=== PATIENT | female | born 1975 | race African-American/Black ===

== ENCOUNTER 2017-12-24 09:35 | Emergency (ER) | payer MEDICAID ==
[~2017-12-24] VITALS: Ht 162.6 cm; Wt 105.0 kg
[~2017-12-24 09:35] MED LIST: AMLO10TA80 PO; ENOX100D4; HTN MEDICATION; HYDR25TA PO; METF500T4 PO; OMEP40CA34 PO; POTA10TA15 PO; WARF5TAB76
[2017-12-24] MEDS ORDERED: HYDROCODONE/ACETAMINOPHEN 5/325MG TABLET PO ONE (11:15)
[2017-12-24 11:23] VITALS: BP 160/99
== END 2017-12-24 11:33 | disposition home or self-care (01) ==
LOC: ER 09:47
DX: M54.5 Low back pain (principal); G89.29 Other chronic pain; I10 Essential (primary) hypertension; F17.200 Nicotine dependence, unspecified, uncomplicated; E11.9 Type 2 diabetes mellitus without complications; Z79.01 Long term (current) use of anticoagulants; Z88.0 Allergy status to penicillin; Z88.6 Allergy status to analgesic agent; Z90.710 Acquired absence of both cervix and uterus
CPT/HCPCS: 99283

== ENCOUNTER 2017-12-28 18:23 | Emergency (ER) | payer MEDICAID ==
[~2017-12-28] VITALS: Ht 162.6 cm; Wt 112.0 kg
[2017-12-28] MEDS: ACETAMINOPHEN 500MG TABLET PO ONE ×2 (21:45→22:11)
[2017-12-28 22:06] LABS: BASOPHILS % 1.1 % (0.0-2.0); EOSINOPHILS % 3.6 % (0.0-5.0); HEMOGLOBIN. 12.6 g/dL (12.0-16.0); LYMPHOCYTES % 36.4 % (20.0-50.0); MEAN CORPUSCULAR HEMOGLOBIN 29.6 pg (28.0-32.0); MEAN CORPUSCULAR VOLUME 89.4 fL (81.0-99.0); MEAN PLATELET VOLUME 8.6 fl (7.4-10.4); NEUTROPHILS % 52.9 % (40.0-76.0); PLATELET 356 x1000/uL (130-400); RED BLOOD CELL COUNT 4.25 mill/uL (4.2-5.4); RED CELL DISTRIBUTION WIDTH 15.1 % (11.6-14.6)
[2017-12-28 22:12] LABS: PARTIAL THROMBOPLASTIN TIME 27.1 sec (23.4-31.0); PROTHROMBIN TIME 10.7 sec (9.4-11.6)
[2017-12-28 22:15] LABS: CHLORIDE 107 mEq/L (98-107)
[2017-12-28 23:45] VITALS: BP 112/76
[2017-12-29 01:02] LABS: KETONES URINE 2+ (NEGATIVE); LEUKOCYTE ESTERASE URINE 2+ (NEGATIVE); NITRITE URINE POSITIVE (NEGATIVE); OCCULT BLOOD URINE 3+ (NEGATIVE); PH URINE 8.5 (4.5-8.0); PROTEIN URINE TRACE (NEGATIVE); SPECIFIC GRAVITY URINE 1.002 (1.005-1.030)
[2017-12-29 01:03] LABS: CLARITY URINE SL HAZY (CLEAR); COLOR URINE YELLOW (YELLOW)
== END 2017-12-29 00:15 | disposition left against medical advice (07) ==
LOC: ER 20:20
DX: M79.605 Pain in left leg (principal); I10 Essential (primary) hypertension; E11.9 Type 2 diabetes mellitus without complications; Z86.718 Personal history of other venous thrombosis and embolism; Z88.0 Allergy status to penicillin; Z88.6 Allergy status to analgesic agent; Z79.01 Long term (current) use of anticoagulants
CPT/HCPCS: 36415; 80053; 81001; 81025; 83690; 85025; 85610; 85730; 93971; 99285

== ENCOUNTER 2024-10-04 07:07 | Emergency (ER) | payer MEDICAID ==
[~2024-10-04] VITALS: Ht 162.6 cm; Wt 119.2 kg
[~2024-10-04 07:07] MED LIST changes: +METF-414 PO; -METF500T4 PO; +OMEP40CA20 PO; -OMEP40CA34 PO
[2024-10-04 07:12] VITALS: O2SAT 100
[2024-10-04] MEDS: ONDANSETRON HCL 4MG TABLET PO ONE (08:35)
[2024-10-04] MEDS: ACETAMINOPHEN 325MG TABLET PO STA (08:35)
[2024-10-04 08:38] LABS: CLARITY URINE CLOUDY (CLEAR); COLOR URINE YELLOW (YELLOW); GLUCOSE URINE TRACE (NEGATIVE); KETONES URINE NEGATIVE (NEGATIVE); LEUKOCYTE ESTERASE URINE 3+ (NEGATIVE); NITRITE URINE NEGATIVE (NEGATIVE); OCCULT BLOOD URINE NEGATIVE (NEGATIVE); PH URINE 5.5 (4.5-8.0); PROTEIN URINE NEGATIVE (NEGATIVE); SPECIFIC GRAVITY URINE 1.018 (1.005-1.030); UROBILINOGEN URINE 0.2 E.U./dL (0.2-1.0)
[2024-10-04 09:07] LABS: WBC URINE 50-100 /hpf (0-2)
[2024-10-04 09:08] LABS: BACTERIA URINE 2+; SQUAMOUS EPITHELIAL CELL URINE 2+ /lpf (RARE/1+); TRICHOMONAS URINE 1+
[2024-10-04 09:10] LABS: HYALINE CASTS URINE 0-5 /lpf
[2024-10-04] MEDS ORDERED: NITR100C PO (09:40)
[2024-10-04] MEDS ORDERED: DOXY100C5 PO (09:40)
[2024-10-04] MEDS: DOXYCYCLINE HYCLATE 100MG CAPSULE PO ONE (10:21)
[2024-10-04] MEDS: CEFTRIAXONE SODIUM 1G VIAL IM ONE (10:22)
[2024-10-04] MEDS ORDERED: ONDA-239 PO (10:55)
[2024-10-04] MEDS ORDERED: TOPUD PO (10:55)
[2024-10-04 11:01] VITALS: BP 155/87; PULSE 78; RESP 16; TEMP 36.78072; O2SAT 100
[2024-10-06 04:08] LABS: CHLAMYDIA TRACHOMATIS NAA Negative (Negative); NEISSERIA GONORRHOEAE NAA Negative (Negative)
== END 2024-10-04 11:17 | disposition home or self-care (01) ==
LOC: ER 07:07
DX: N39.0 Urinary tract infection, site not specified (principal); A74.9 Chlamydial infection, unspecified; I10 Essential (primary) hypertension; E11.9 Type 2 diabetes mellitus without complications; Z88.6 Allergy status to analgesic agent; Z88.0 Allergy status to penicillin; Z90.710 Acquired absence of both cervix and uterus; Z79.899 Other long term (current) drug therapy; Z98.890 Other specified postprocedural states
CPT/HCPCS: 87491; 87591; 81003; 81025; 87086; 96372; 99284; Q0162; J0696; Z7610 ×2

== ENCOUNTER 2025-04-11 06:33 | Emergency (ER) | payer MEDICAID ==
[~2025-04-11] VITALS: Ht 162.6 cm; Wt 113.0 kg
[~2025-04-11 06:33] MED LIST changes: +DOXY100C5 PO; +NITR100C PO; +ONDA-239 PO; +TOPUD PO
[2025-04-11 06:40] VITALS: TEMP 36.9; O2SAT 100
[2025-04-11 06:42] VITALS: O2SAT 100
[2025-04-11 07:26] LABS: BASOPHILS % 0.8 % (0.0-2.0); HEMATOCRIT. 39.8 % (36.0-48.0); HEMOGLOBIN. 13.2 g/dL (12.0-16.0); LYMPHOCYTES % 33.9 % (20.0-50.0); MEAN CORPUSCULAR HGB CONC 33.1 g/dL (31.0-37.0); MEAN CORPUSCULAR VOLUME 90.5 fL (81.0-99.0); MEAN PLATELET VOLUME 8.6 fl (7.4-10.4); MONOCYTES % 6.1 % (2.0-8.0); NEUTROPHILS % 56.2 % (40.0-76.0); PLATELET 378 x1000/uL (130-400); RED CELL DISTRIBUTION WIDTH 14.6 % (11.6-14.6); WHITE BLOOD COUNT 9.6 x1000/uL (4.5-11.0)
[2025-04-11 07:56] LABS: CLARITY URINE CLEAR (CLEAR); COLOR URINE YELLOW (YELLOW); GLUCOSE URINE NEGATIVE (NEGATIVE); KETONES URINE NEGATIVE (NEGATIVE); LEUKOCYTE ESTERASE URINE 3+ (NEGATIVE); NITRITE URINE NEGATIVE (NEGATIVE); OCCULT BLOOD URINE NEGATIVE (NEGATIVE); PH URINE 5.5 (4.5-8.0); PROTEIN URINE NEGATIVE (NEGATIVE); SPECIFIC GRAVITY URINE 1.018 (1.005-1.030); UROBILINOGEN URINE 0.2 E.U./dL (0.2-1.0)
[2025-04-11 08:41] LABS: CHLORIDE 107 mEq/L (98-107); POTASSIUM 4.1 mEq/L (3.5-5.1); SODIUM 140 mEq/L (136-145)
[2025-04-11 08:42] LABS: CALCIUM 9.2 mg/dL (8.7-10.4); CARBON DIOXIDE 23 mEq/L (21-32)
[2025-04-11 08:47] LABS: CREATININE 0.8 mg/dL (0.6-1.0); GLUCOSE 185 mg/dL (70-105); UREA NITROGEN BLOOD 8 mg/dL (9-23)
[2025-04-11 08:49] LABS: ALANINE AMINOTRANSFERASE 10 IU/L (10-49); ALBUMIN 4.2 g/dL (3.2-4.8); ASPARTATE AMINOTRANSFERASE 13 IU/L (<34); BILIRUBIN DIRECT < 0.1 mg/dL (<=3.0)
[2025-04-11 08:50] LABS: BILIRUBIN TOTAL 0.2 mg/dL (0.1-1.0); PROTEIN TOTAL 6.9 g/dL (6.0-8.3)
[2025-04-11 08:51] LABS: SQUAMOUS EPITHELIAL CELL URINE 2+ /lpf (RARE/1+)
[2025-04-11 08:53] LABS: TRICHOMONAS URINE 3+
[2025-04-11 08:54] LABS: BACTERIA URINE 2+
[2025-04-11 08:56] LABS: MUCUS URINE TRACE /lpf (< = 2+)
[2025-04-11 09:07] VITALS: BP 173/83; PULSE 90; RESP 16
[2025-04-11] MEDS: ONDANSETRON HCL 4MG TABLET PO ONE (09:07)
[2025-04-11] MEDS: ACETAMINOPHEN WITH CODEINE 300/30MG TABLET PO ONE (09:07)
[2025-04-11] MEDS ORDERED: ONDA-239 PO (09:22)
[2025-04-11] MEDS ORDERED: METR-167 PO (09:22)
[2025-04-11] MEDS ORDERED: DOXY100T2 PO (09:22)
[2025-04-11] MEDS: METRONIDAZOLE 500MG TABLET PO ONE (09:48)
[2025-04-11] MEDS: CEFTRIAXONE SODIUM 1G VIAL IM ONE (09:48)
[2025-04-11] MEDS: DOXYCYCLINE HYCLATE 100MG CAPSULE PO ONE (09:48)
[2025-04-13 04:07] LABS: CHLAMYDIA TRACHOMATIS NAA Negative (Negative); NEISSERIA GONORRHOEAE NAA Negative (Negative)
== END 2025-04-11 10:05 | disposition home or self-care (01) ==
LOC: ER 06:33
DX: A59.01 Trichomonal vulvovaginitis (principal); N39.0 Urinary tract infection, site not specified; E11.9 Type 2 diabetes mellitus without complications; I10 Essential (primary) hypertension; Z88.6 Allergy status to analgesic agent; Z88.0 Allergy status to penicillin; Z88.5 Allergy status to narcotic agent; Z79.899 Other long term (current) drug therapy; Z90.710 Acquired absence of both cervix and uterus; Z98.890 Other specified postprocedural states
CPT/HCPCS: 87491; 87591; 80076; 80048; 81003; 85025; 87086; 87210; 87077; 36415; 96372; 99284; Q0162; J0696; Z7610 ×3; A4606

== ENCOUNTER 2025-08-13 19:09 | Inpatient (IN) | payer MEDICAID ==
[~2025-08-13] VITALS: Ht 162.6 cm; Wt 110.2 kg
[~2025-08-13 19:09] MED LIST changes: +DOXY100T2 PO; +METR-167 PO
[2025-08-13 19:20] VITALS: O2SAT 99
[2025-08-13 20:29] LABS: BASOPHILS % 0.5 % (0.0-2.0); EOSINOPHILS % 1.4 % (0.0-5.0); HEMATOCRIT. 43.3 % (36.0-48.0); HEMOGLOBIN. 14.4 g/dL (12.0-16.0); LYMPHOCYTES % 25.9 % (20.0-50.0); MEAN PLATELET VOLUME 8.3 fl (7.4-10.4); MONOCYTES % 5.9 % (2.0-8.0); NEUTROPHILS % 66.3 % (40.0-76.0); PLATELET 400 x1000/uL (130-400); RED BLOOD CELL COUNT 4.85 mill/uL (4.2-5.4); RED CELL DISTRIBUTION WIDTH 15.0 % (11.6-14.6)
[2025-08-13 20:43] LABS: CREATININE 1.0 mg/dL (0.6-1.0); UREA NITROGEN BLOOD 11 mg/dL (9-23)
[2025-08-13 21:24] LABS: CLARITY URINE CLEAR (CLEAR); COLOR URINE YELLOW (YELLOW); GLUCOSE URINE NEGATIVE (NEGATIVE); KETONES URINE TRACE (NEGATIVE); LEUKOCYTE ESTERASE URINE NEGATIVE (NEGATIVE); NITRITE URINE NEGATIVE (NEGATIVE); OCCULT BLOOD URINE NEGATIVE (NEGATIVE); PH URINE 5.0 (4.5-8.0); PROTEIN URINE TRACE (NEGATIVE); SPECIFIC GRAVITY URINE 1.024 (1.005-1.030); UROBILINOGEN URINE 0.2 E.U./dL (0.2-1.0)
[2025-08-13 21:35] LABS: BACTERIA URINE 1+; RBC URINE 0-2 /hpf (0-2); SQUAMOUS EPITHELIAL CELL URINE 1+ /lpf (RARE/1+); WBC URINE 0-2 /hpf (0-2)
[2025-08-13] MEDS: DIPHENHYDRAMINE 50MG/ML VIAL IV ONE (22:24)
[2025-08-13] MEDS: METOCLOPRAMIDE HCL 10MG/2ML VIAL IV ONE (22:24)
[2025-08-13] MEDS: ACETAMINOPHEN 500MG TABLET PO ONE (22:24)
[2025-08-13] MEDS: MORPHINE SULFATE 4 MG/ML INJ (FOR IV/IM USE) IV ONE (23:23)
[2025-08-14] VITALS: BP 144/99; PULSE 89; RESP 20; TEMP 35.6; O2SAT 97
[2025-08-14 01:25] VITALS: BP 144/99; PULSE 89; RESP 18; TEMP 36.14
[2025-08-14] MEDS ORDERED: CYCL5TAB3 PO (02:26)
[2025-08-14] MEDS ORDERED: OMEP20TA23 PO (02:26)
[2025-08-14] MEDS ORDERED: DOXY100C5 PO (02:26)
[2025-08-14] MEDS ORDERED: LOSA50TA41 PO (02:26)
[2025-08-14] MEDS ORDERED: GLIP5TAB22 PO (02:26)
[2025-08-14] MEDS ORDERED: DEXTROSE 50% WATER 50ML SYRINGE IV PRN (03:00)
[2025-08-14] MEDS ORDERED: NALOXONE HCL 0.4MG/ML VIAL IV PRN (03:15)
[2025-08-14] MEDS: HYDROCODONE/ACETAMINOPHEN 5/325MG TABLET PO PRN (03:41)
[2025-08-14 04:00] VITALS: BP 108/72; PULSE 71; RESP 16; TEMP 36.4; O2SAT 97
[2025-08-14] MEDS: BLOOD SUGAR DIAGNOSTIC STRIP TEST SCH (06:35)
[2025-08-14 08:06] VITALS: BP 104/57; PULSE 65; RESP 20; TEMP 36.3; O2SAT 97
[2025-08-14 08:36] LABS: HEPATITIS C AB NON REACTIVE (Neg) (Negative)
[2025-08-14] MEDS: ENOXAPARIN 30MG/0.3ML SYR SUBCUT SCH (08:36)
[2025-08-14] MEDS: ASPIRIN 81MG TABLET PO SCH (08:36)
[2025-08-14] MEDS: INSULIN LISPRO 100 UNITS/ML SUBCUT SCH (08:37)
[2025-08-14] MEDS: LOSARTAN 50 MG TABLET PO SCH (09:00)
[2025-08-14 12:14] VITALS: BP 94/61; PULSE 86; RESP 20; TEMP 36.3; O2SAT 97
[2025-08-14] MEDS: MORPHINE SULFATE 4 MG/ML INJ (FOR IV/IM USE) IV PRN (12:57)
[2025-08-14 15:53] VITALS: BP 100/65; PULSE 83; RESP 18; TEMP 36.2; O2SAT 96
[2025-08-14] MEDS ORDERED: ATORVASTATIN CALCIUM 40MG TABLET PO SCH (21:00)
[2025-08-15] MEDS ORDERED: CLOPIDOGREL 75MG TABLET PO SCH (09:00)
[2025-08-24] MEDS ORDERED: DULO20CA18 MT (14:07)
[2025-08-24] MEDS ORDERED: METF-414 MT (14:07)
[2025-08-24] MEDS ORDERED: LIP40 PO (14:07)
[2025-08-24] MEDS ORDERED: QUET25TA PO (14:07)
[2025-08-24] MEDS ORDERED: ASPI-1160 PO (14:07)
[2025-08-24] MEDS ORDERED: CLOP-31 PO (14:07)
[2025-08-29] MEDS ORDERED: LIP40 PO (15:07)
[2025-08-29] MEDS ORDERED: METF-414 MT (15:07)
[2025-08-29] MEDS ORDERED: CLOP-31 PO (15:07)
[2025-08-29] MEDS ORDERED: QUET25TA PO (15:07)
[2025-08-29] MEDS ORDERED: ASPI-1160 PO (15:07)
[2025-08-29] MEDS ORDERED: DULO20CA18 MT (15:08)
== END 2025-08-14 19:25 | disposition left against medical advice (07) | DRG 45 ==
LOC: ER 19:09 → 7WST 22:58 → EDBEDREQ 23:09 → EDBEDREQTM 23:09 → ENRESERV 08-14 00:44
PROVIDERS: ADMIT Internal Medicine; ATTEND Internal Medicine
DX: I63.9 Cerebral infarction, unspecified (principal); R65.11 Systemic inflammatory response syndrome (SIRS) of non-infectious origin with acute organ dysfunction; E11.9 Type 2 diabetes mellitus without complications; E66.9 Obesity, unspecified; F17.210 Nicotine dependence, cigarettes, uncomplicated; Z53.29 Procedure and treatment not carried out because of patient's decision for other reasons; I10 Essential (primary) hypertension; Z88.6 Allergy status to analgesic agent; Z88.0 Allergy status to penicillin; Z90.710 Acquired absence of both cervix and uterus; Z86.73 Personal history of transient ischemic attack (TIA), and cerebral infarction without residual deficits; Z68.41 Body mass index [BMI] 40.0-44.9, adult; Z90.49 Acquired absence of other specified parts of digestive tract; Z79.899 Other long term (current) drug therapy; Z86.718 Personal history of other venous thrombosis and embolism
CPT/HCPCS: 36415; 70551; 80048; 81003; 82962; 83036; 85025; 86705; 87340; 96374; 96375; 99285; J1200; J1650; J1815; J2270; J2765